=== PATIENT | male | born 1985 | race Caucasian/White ===

== ENCOUNTER 2017-02-25 14:30 | Observation (INO) | payer MEDICAID, OTHER ==
[~2017-02-25] VITALS: Ht 170.2 cm; Wt 70.0 kg
[2017-02-25 14:32] VITALS: BP 155/86; PULSE 86; RESP 16; TEMP 97.9; O2SAT 98
--- NOTE | 2017-02-25 14:38 | PD ---
Physical Exam Time Seen by Provider: 14:37 Narrative 32 y/o male with yellowing eyes, yellowing skin, dark urine, lower back pain which started one week ago. Hx IVDU, relapsed one month ago. No hx of hepatitis in the past. Vital signs reviewed. Seen at triage desk. Awaiting bed placement. Data Data Last Documented VS Vital Signs Date Time Temp Pulse Resp B/P Pulse Ox O2 Delivery O2 Flow Rate FiO2 02/25/17 14:32 97.9 86 16 155/86 98 MDM Medical Record Reviewed: Yes Supervised Visit with DANNY: Finesse King Feb 25, 2017 14:38
[2017-02-25] MEDS ORDERED: SODIUM CHLOR 0.9% 1000 ML INJ 1,000 ML IV ONE ×2 (16:45)
[2017-02-25 17:56] LABS: AUTOMATED NEUTROPHIL # 4.5 TH/MM3 (1.8-7.7); BASOPHIL # 0.1 TH/MM3 (0-0.2); EOSINOPHIL # 0.3 TH/MM3 (0-0.4); HEMATOCRIT 42.2 % (39.0-51.0); HEMO FLAGS DIFF FINAL; LYMPH % 26.1 % (9.0-44.0); LYMPHOCYTE # 2.2 TH/MM3 (1.0-4.8); MEAN CELL VOLUME 86.5 FL (80.0-100.0); MEAN CORPUSCULAR HEMOGLOBIN 28.5 PG (27.0-34.0); MONO % 15.4 % (0.0-8.0); NEUT % 53.5 % (16.0-70.0); PLATELET COUNT 278 TH/MM3 (150-450); RED BLOOD COUNT 4.88 MIL/MM3 (4.50-5.90); RED CELL DISTRIBUTION WIDTH 14.6 % (11.6-17.2); WHITE BLOOD COUNT 8.4 TH/MM3 (4.0-11.0)
[2017-02-25 18:08] LABS: ALT (GPT) 597 U/L (12-78); ANION GAP 9 MEQ/L (5-15); AST (GOT) 486 U/L (15-37); BICARBONATE 26.6 MEQ/L (21.0-32.0); BLOOD UREA NITROGEN 9 MG/DL (7-18); CHLORIDE 104 MEQ/L (98-107); GLOMERULAR FILTRATION RATE 82 ML/MIN (>89); POTASSIUM 3.6 MEQ/L (3.5-5.1); SODIUM (NA) 140 MEQ/L (136-145)
[2017-02-25 18:11] LABS: ALKALINE PHOSPHATASE 230 U/L (45-117); TOTAL BILIRUBIN ADULT 7.5 MG/DL (0.2-1.0)
[2017-02-25] MEDS ORDERED: IOHEXOL 350 MG/ML 10 ML VIAL (for RAD DIAG) IV ONE (18:35)
[2017-02-25 18:42] LABS: BLOOD, URINE NEG (NEG); CALCIUM OXALATE CRYSTALS,URINE FEW /hpf; COMMENT (UR) CULT NOT INDICATED; CULTURE IF INDICATED CULT NOT INDICATED; GLUCOSE,URINE NEG (NEG); KETONE, URINE NEG (NEG); MUCUS URINE FEW /lpf (OCC); NITRITE,URINE NEG (NEG); SQUAMOUS EPITHELIAL CELL URINE <1 /hpf (0-5)
[2017-02-25 18:44] LABS: URINE COLOR DARK-BROWN (YELLW/STRAW)
--- NOTE | 2017-02-25 18:54 | RADRPT ---
EXAM DATE/TIME: 02/25/2017 18:22 [facility] COMPARISON: No previous studies available for comparison. INDICATIONS : Evaluate for liver disease, patient jaundice. IV CONTRAST: 100 cc Omnipaque 350 (iohexol) IV ORAL CONTRAST: No oral contrast ingested. RADIATION DOSE: 9.96 CTDIvol (mGy) MEDICAL HISTORY : Seizures. SURGICAL HISTORY : double hernia ENCOUNTER: Initial ACUITY: 1 day PAIN SCALE: 5/10 LOCATION: lower quadrant TECHNIQUE: Volumetric scanning of the abdomen and pelvis was performed. Using automated exposure control and ad justment of the mA and/or kV according to patient size, radiation dose was kept as low as reasonably achievable to obtain optimal diagnostic quality images. DICOM format image data is available electro nically for review and comparison. FINDINGS: LOWER LUNGS: The visualized lower lungs are clear. LIVER: Homogeneous density without lesion. There is no dilation of the biliary tree. The gallbladder is co ntracted and there is some enhancement in the wall, a nonspecific finding given the contracted nature of the gallbladder. No calcified gallstones. SPLEEN: Normal size without lesion. PANCREAS: Within normal limits. The common bile duct measures 3 mm. KIDNEYS: Normal in size and shape. There is no mass, stone or hydronephrosis. ADRENAL GLANDS: Within normal limits. VASCULAR: There is no aortic aneurysm. BOWEL/MESENTERY: The stomach is distended. No dilated loops of small or large bowel. ABDOMINAL WALL: Within normal limits. RETROPERITONEUM: There is no lymphadenopathy. BLADDER: No wall thickening or mass. REPRODUCTIVE: Within normal limits. INGUINAL: There is no lymphadenopathy or hernia. MUSCULOSKELETAL: Within normal limits for patient age. CONCLUSION: 1. The gallbladder is contracted. No calcified stones seen. 2. No evidence of dilation of the intra-arterial hepatic biliary system. 3. Distended stomach is of uncertain significance. No dilated loops of small or large bowel. Wicho Villalpando MD on February 25, 2017 at 18:49 Board Certified Radiologist. This report was verified electronically.
--- NOTE | 2017-02-25 19:08 | PD ---
HPI Chief Complaint: Medical Clearance Time Seen by Provider: 16:02 Travel History International Travel<30 days: No Contact w/Intl Traveler<30days: No Traveled to known affect area: No History of Present Illness HPI Is a 32-year-old man who presents to the emergency department complaining of dark urine loose light-colored stools, as well as some back pain, and then today started having jaundice. He is a history of IV drug use in the past. Last used about a month or so ago. No history of liver problems. 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 Is been worsening. No other complaints. 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 SKIN: Focused skin assessment warm/dry. HEAD: Atraumatic. Normocephalic. EYES: Positive scleral icterus. ENT: No nasal bleeding or discharge. Mucous membranes pink and moist. NECK: Trachea midline. No JVD. CARDIOVASCULAR: Regular rate and rhythm. No murmur appreciated. RESPIRATORY: No accessory muscle use. Clear to auscultation. Breath sounds equal bilaterally. GASTROINTESTINAL: Abdomen soft, non-tender, nondistended. Hepatic and splenic margins not palpable. MUSCULOSKELETAL: No obvious deformities. No edema. NEUROLOGICAL: Awake and alert. No obvious cranial nerve deficits. Motor grossly within normal limits. Normal speech. Data Data Last Documented VS Vital Signs Date Time Temp Pulse Resp B/P Pulse Ox O2 Delivery O2 Flow Rate FiO2 02/25/17 14:32 97.9 86 16 155/86 98 Orders Complete Blood Count With Diff (02/25/17 16:03) Comprehensive Metabolic Panel (02/25/17 16:03) Urinalysis - C+S If Indicated (02/25/17 16:03) Iv Access Insert/Monitor (02/25/17 16:03) Ct Abd/Pel W Iv Contrast(Rout) (02/25/17 ) Sodium Chlor 0.9% 1000 Ml Inj (Ns 1000 M (02/25/17 16:45) Sodium Chlor 0.9% 1000 Ml Inj (Ns 1000 M (02/25/17 16:45) Lipase (02/25/17 16:03) Iohexol 350 Inj (Omnipaque 350 Inj) (02/25/17 18:35) Act Partial Throm Time (Ptt) (02/25/17 18:59) Prothrombin Time / Inr (Pt) (02/25/17 18:59) Labs Laboratory Tests Test 02/25/17 02/25/17 02/25/17 16:30 17:15 17:45 Sodium Level 140 MEQ/L Potassium Level 3.6 MEQ/L Chloride Level 104 MEQ/L Carbon Dioxide Level 26.6 MEQ/L Anion Gap 9 MEQ/L Blood Urea Nitrogen 9 MG/DL Creatinine 1.06 MG/DL Estimat Glomerular Filtration 82 ML/MIN Rate Random Glucose 90 MG/DL Calcium Level 9.3 MG/DL Total Bilirubin 7.5 MG/DL Aspartate Amino Transf 486 U/L (AST/SGOT) Alanine Aminotransferase 597 U/L (ALT/SGPT) Alkaline Phosphatase 230 U/L Total Protein 7.2 GM/DL Albumin 3.5 GM/DL Lipase 147 U/L White Blood Count 8.4 TH/MM3 Red Blood Count 4.88 MIL/MM3 Hemoglobin 13.9 GM/DL Hematocrit 42.2 % Mean Corpuscular Volume 86.5 FL Mean Corpuscular Hemoglobin 28.5 PG Mean Corpuscular Hemoglobin 33.0 % Concent Red Cell Distribution Width 14.6 % Platelet Count 278 TH/MM3 Mean Platelet Volume 8.5 FL Neutrophils (%) (Auto) 53.5 % Lymphocytes (%) (Auto) 26.1 % Monocytes (%) (Auto) 15.4 % Eosinophils (%) (Auto) 4.0 % Basophils (%) (Auto) 1.0 % Neutrophils # (Auto) 4.5 TH/MM3 Lymphocytes # (Auto) 2.2 TH/MM3 Monocytes # (Auto) 1.3 TH/MM3 Eosinophils # (Auto) 0.3 TH/MM3 Basophils # (Auto) 0.1 TH/MM3 CBC Comment DIFF FINAL Differential Comment Urine Color DARK-BROWN Urine Turbidity HAZY Urine pH 8.0 Urine Specific [place] 1.028 Urine Protein 30 mg/dL Urine Glucose (UA) NEG mg/dL Urine Ketones NEG mg/dL Urine Occult Blood NEG Urine Nitrite NEG Urine Bilirubin MOD Urine Urobilinogen 8.0 MG/DL Urine Leukocyte Esterase NEG Urine RBC 13 /hpf Urine WBC LESS THAN 1 /hpf Urine Squamous Epithelial <1 /hpf Cells Urine Calcium Oxalate Crystals FEW /hpf Urine Mucus FEW /lpf Microscopic Urinalysis Comment CULT NOT INDICATED MDM Medical Decision Making Medical Screen Exam Complete: Yes Emergency Medical Condition: Yes Interpretation(s) LABS: CBC unremarkable. CMP remarkable for elevated total bili, elevated AST and ALT, elevated alkaline phosphatase and lipase all UA with bilirubin CT abdomen and pelvis: Gallbladder is contracted. No stones. No evidence of dilatation of the intrahepatic biliary system. Distended stomach. Differential Diagnosis Viral hepatitis, obstruction, pulmonary hepatitis, other Narrative Course Medical decision-making 32-year-old man with acute viral hepatitis. Likely acute viral hepatitis. CT scans unremarkable. We'll plan on admission for observation to make sure the patient is not developing pulmonary hepatic failure. Diagnosis Primary Impression: Acute hepatitis Scripts No Active Prescriptions or Reported Meds Baldomero Dawkins MD Feb 25, 2017 19:08
[2017-02-25] MEDS ORDERED: ONDANSETRON HCL 4 MG/2 ML VIAL IVP PRN (19:30)
[2017-02-25] MEDS ORDERED: ACETAMINOPHEN 325 MG TAB PO PRN (19:30)
[2017-02-25] MEDS ORDERED: diphenhydrAMINE HCL 25 MG CAP PO PRN (20:00)
[2017-02-25 20:03] VITALS: BP 134/79; PULSE 84; RESP 16; O2SAT 99
[2017-02-25 20:22] LABS: APTT (PATIENT) 31.5 SEC (24.3-30.1); PROTHROMBIN TIME - PATIENT 11.6 SEC (9.8-11.6)
--- NOTE | 2017-02-25 20:28 | HHI.HP ---
HPI Service [facility] Primary Care Physician Non-Staff Admission Diagnosis acute hepatitis Diagnoses: Chief Complaint: yellow skin coloring, light-colored stools, intense itching, and nausea. Travel History International Travel<30 Days: No Contact w/Intl Traveler <30 Da: No Traveled to Known Affected Are: No History of Present Illness 32-year-old male with a history of IV drug abuse, last episode one month ago presented to the ED with complaints of yellow skin coloring, light-colored stools, intense itching, and nausea. Patient states for the last 2 days he has not been feeling very well, unable to keep food down and very nauseous. He states he vomits after eating meat. He states he is not drinking well either and his urine is a dark brown color. Stools are light in color, denies any blood. He is itching all over his body but denies any rash. Denies any chest pain, sob, abdominal pain, or dysuria. Denies any alcohol abuse or history of Hep C. Denies any over use of Tylenol. Review of Systems Except as stated in HPI: all other systems reviewed are Neg Past Family Social History Past Medical History IVDA Kidney disease after taking lithium Past Surgical History Double inguinal hernia repair at age 4 Reported Medications Reported Meds & Active Scripts Active No Active Prescriptions or Reported Medications Allergies: Coded Allergies: No Known Allergies (Unverified , 02/25/17) Active Ordered Medications Current Medications Medications (Trade) Dose Ordered Sig/Anam Route Start Time Stop Time Status Last Admin (NS 1000 ml Inj) 1,000 ml @ 100 mls/hr Q10H IV 02/25/17 20:00 (Zofran Inj) 4 mg Q6H PRN IVP 02/25/17 19:30 Family History Dad: Gallbladder disease Family history is significant for heart disease Social History Tobacco use: 2-3 cigarettes a day Alcohol use: rarely Illicit drug use: IVDA, last use 1 month ago Physical Exam Vital Signs Vital Signs Date Time Temp Pulse Resp B/P Pulse Ox O2 Delivery O2 Flow Rate FiO2 02/25/17 14:32 97.9 86 16 155/86 98 Physical Exam GENERAL: This is a well-nourished, well-developed patient, in no apparent distress. SKIN: No rashes, ecchymoses or lesions. Cool and dry. Intense itching. Jaundice HEAD: Atraumatic. Normocephalic. EYES: Pupils equal round and reactive. Sclera is white. ENT: Nose without bleeding, purulent drainage or septal hematoma. Airway patent. NECK: Trachea midline. No JVD or lymphadenopathy. CARDIOVASCULAR: Regular rate and rhythm without murmurs, gallops, or rubs. RESPIRATORY: Clear to auscultation. Breath sounds equal bilaterally. No wheezes , rales, or rhonchi. GASTROINTESTINAL: Abdomen soft, non-tender, nondistended.BS x 4. No guarding. MUSCULOSKELETAL: Extremities without clubbing, cyanosis, or edema. No joint tenderness, effusion, or edema noted. No calf tenderness. NEUROLOGICAL: Awake and alert. Motor and sensory grossly within normal limits. Five out of 5 muscle strength in all muscle groups. Normal speech. Laboratory Laboratory Tests Test 02/25/17 02/25/17 02/25/17 16:30 17:15 17:45 Sodium Level 140 Potassium Level 3.6 Chloride Level 104 Carbon Dioxide Level 26.6 Anion Gap 9 Blood Urea Nitrogen 9 Creatinine 1.06 Estimat Glomerular Filtration 82 Rate Random Glucose 90 Calcium Level 9.3 Total Bilirubin 7.5 Aspartate Amino Transf 486 (AST/SGOT) Alanine Aminotransferase 597 (ALT/SGPT) Alkaline Phosphatase 230 Total Protein 7.2 Albumin 3.5 Lipase 147 White Blood Count 8.4 Red Blood Count 4.88 Hemoglobin 13.9 Hematocrit 42.2 Mean Corpuscular Volume 86.5 Mean Corpuscular Hemoglobin 28.5 Mean Corpuscular Hemoglobin 33.0 Concent Red Cell Distribution Width 14.6 Platelet Count 278 Mean Platelet Volume 8.5 Neutrophils (%) (Auto) 53.5 Lymphocytes (%) (Auto) 26.1 Monocytes (%) (Auto) 15.4 Eosinophils (%) (Auto) 4.0 Basophils (%) (Auto) 1.0 Neutrophils # (Auto) 4.5 Lymphocytes # (Auto) 2.2 Monocytes # (Auto) 1.3 Eosinophils # (Auto) 0.3 Basophils # (Auto) 0.1 CBC Comment DIFF FINAL Differential Comment Urine Color DARK-BROWN Urine Turbidity HAZY Urine pH 8.0 Urine Specific [place] 1.028 Urine Protein 30 Urine Glucose (UA) NEG Urine Ketones NEG Urine Occult Blood NEG Urine Nitrite NEG Urine Bilirubin MOD Urine Urobilinogen 8.0 Urine Leukocyte Esterase NEG Urine RBC 13 Urine WBC LESS THAN 1 Urine Squamous Epithelial <1 Cells Urine Calcium Oxalate Crystals FEW Urine Mucus FEW Microscopic Urinalysis Comment CULT NOT INDICATED Result Diagram: 02/25/17 1715 02/25/17 1630 Imaging Last Impressions Abdomen/Pelvis CT 02/25/17 0000 Signed Impressions: Service Date/Time: Saturday, February 25, 2017 18:22 - CONCLUSION: 1. The gallbladder is contracted. No calcified stones seen. 2. No evidence of dilation of the intra-arterial hepatic biliary system. 3. Distended stomach is of uncertain significance. No dilated loops of small or large bowel. Wicho Villalpando MD Assessment and Plan Problem List: (1) Acute hepatitis ICD Code: B17.9 Status: Acute (2) Transaminitis ICD Code: R74.0 Status: Acute Assessment and Plan 32-year-old male with a history of IV drug abuse, last episode one month ago presented to the ED with complaints of yellow skin coloring, light-colored stools, intense itching, and nausea for the past 2 days. Transaminitis, likely viral acute hepatitis, patient with nausea and vomiting for the last 2 days, unknown hepatitis history Abdominal CT reviewed and shows The gallbladder is contracted. No calcified stones seen. No evidence of dilation of the intra-arterial hepatic biliary system. Distended stomach is of uncertain significance. No dilated loops of small or large bowel. AST 486, ALT 597 -Hepatitis profile ordered -Consult GI for recommendations -IVF for hydration -CMP in AM -Antiemetics as needed, Benadryl for itching IVDA, history -Encouraged to quit DVT prophylaxis: SCDs Discussed Condition With Patient, and Lauren Foss Feb 25, 2017 20:28
[2017-02-25 20:40] VITALS: BP 126/68; PULSE 72; RESP 20; TEMP 98.9; O2SAT 99
[2017-02-25] MEDS: SODIUM CHLOR 0.9% 1000 ML INJ 1,000 ML IV SCH (21:23)
[2017-02-25 23:25] VITALS: BP_SYST 114; BP_SYST 118; BP_SYST 120; BP_DIAS 66; BP_DIAS 74; PULSE 76; RESP 20; TEMP 98.9; O2SAT 100
[2017-02-26 04:15] VITALS: BP 119/55; PULSE 56; RESP 19; TEMP 98.2; O2SAT 99
[2017-02-26] MEDS: SODIUM CHLOR 0.9% 1000 ML INJ 1,000 ML IV SCH ×2 (06:00→07:26)
[2017-02-26 07:37] VITALS: BP 123/75; PULSE 63; RESP 16; TEMP 98.4; O2SAT 100
--- NOTE | 2017-02-26 09:10 | PD.AMA ---
Against Medical Advice Note Diagnosis: (1) Acute hepatitis (2) Transaminitis Discharge Disposition: Against Medical Advice Pt Condition on Discharge: Fair AMA Statement Patient Wayne Diaz has decided to leave the hospital against medical advice. This patient has the capacity to refuse care and understands the risks of leaving, including permanent disability and/or , and has had an opportunity to ask questions about his condition. The patient has been informed that he may return for care at any time, and follow up has been arranged/ advised. Dr. Evans and myself informed around 0800hrs the patient plans to leave AMA immediately. Attempted to see patient however he has already left. RN reports the patient is AAOx4. RN explained risks of leaving and removed IV. He told RN his father is a surgeon at [facility] and he plans to go there. Apparently the patient was upset because he was told he couldn't eat for 4 hours until he had his scan done. Rosa Cassidy PA-C Feb 26, 2017 9:10 am
== END 2017-02-26 08:43 | disposition left against medical advice (07) ==
LOC: NEPC 14:30 → NEDA 19:27 → INTOOBSV 19:27 → NEPFCDU 20:22
PROVIDERS: ADMIT Hospitalist; ATTEND Hospitalist
DX: B17.9 Acute viral hepatitis, unspecified (principal); R74.0 Nonspecific elevation of levels of transaminase and lactic acid dehydrogenase [LDH]; F17.210 Nicotine dependence, cigarettes, uncomplicated; F19.10 Other psychoactive substance abuse, uncomplicated; Z53.21 Procedure and treatment not carried out due to patient leaving prior to being seen by health care provider
CPT/HCPCS: 74177; 80053; 80307; 81001; 83690; 85025; 85610; 85730; 96360; 99285; G0378; J2405; J7030; Q9967